=== PATIENT | male | born 1970 ===

== ENCOUNTER 2020-03-11 07:53 | Outpatient (REF) | payer MEDICARE, MEDICAID, SELFPAY | END 2020-03-11 07:54 | disposition home or self-care (01) | LOC: HO.LAB 07:53 | PROVIDERS: PCP Internal Medicine; Visit Provider Internal Medicine | DX: Z20.828 Contact with and (suspected) exposure to other viral communicable diseases (principal) | CPT/HCPCS: C9803; U0003 ==

== ENCOUNTER 2022-03-04 09:13 | Outpatient (REF) | payer MEDICARE, MEDICAID, SELFPAY ==
--- NOTE | ~2022-03-04 | XR_ITS ---
EXAMINATION: RIGHT HAND, LUMBAR SPINE AND LEFT FOOT. CLINICAL INFORMATION: Pain. COMPARISON: Right hand 03/24/2017. Left foot 11/10/2013 TECHNIQUE: Right hand 3 views, lumbar spine 3 views and left foot 3 views. FINDINGS: Right ankle: There old healed the right distal fourth and fifth metacarpal fractures. No visible acute fracture or dislocation seen. No lytic process. The soft tissues are normal. Lumbar spine: There is mild straightening of lumbar lordosis. The vertebral heights and alignment is normal. There is loss of L4-L5 and L5/S1 disc heights with moderate spondylosis. No visible acute fracture, dislocation or lytic process seen. SI joints are symmetrical. Left foot: There is mild hallux valgus deformity first MTP joint with minimal joint effusion but no periarticular spurring. No visible acute fracture, dislocation or lytic process seen. XR/XR foot LT min 3V IMPRESSION: 1. No acute fracture or dislocation right ankle. Old healed distal fourth and fifth metacarpal fractures. 2. Mild degenerative disc changes L4-L5 and L5-S1 disc levels with moderate spondylosis. No visible acute fracture or dislocation seen. 3. Mild hallux valgus deformity first MTP joint left foot. No visible acute fracture or dislocation seen.
--- NOTE | ~2022-03-04 | XR_ITS ---
EXAMINATION: RIGHT HAND, LUMBAR SPINE AND LEFT FOOT. CLINICAL INFORMATION: Pain. COMPARISON: Right hand 03/24/2017. Left foot 11/10/2013 TECHNIQUE: Right hand 3 views, lumbar spine 3 views and left foot 3 views. FINDINGS: Right ankle: There old healed the right distal fourth and fifth metacarpal fractures. No visible acute fracture or dislocation seen. No lytic process. The soft tissues are normal. Lumbar spine: There is mild straightening of lumbar lordosis. The vertebral heights and alignment is normal. There is loss of L4-L5 and L5/S1 disc heights with moderate spondylosis. No visible acute fracture, dislocation or lytic process seen. SI joints are symmetrical. Left foot: There is mild hallux valgus deformity first MTP joint with minimal joint effusion but no periarticular spurring. No visible acute fracture, dislocation or lytic process seen. XR/XR lumbar spine 2-3V IMPRESSION: 1. No acute fracture or dislocation right ankle. Old healed distal fourth and fifth metacarpal fractures. 2. Mild degenerative disc changes L4-L5 and L5-S1 disc levels with moderate spondylosis. No visible acute fracture or dislocation seen. 3. Mild hallux valgus deformity first MTP joint left foot. No visible acute fracture or dislocation seen.
--- NOTE | ~2022-03-04 | XR_ITS ---
EXAMINATION: RIGHT HAND, LUMBAR SPINE AND LEFT FOOT. CLINICAL INFORMATION: Pain. COMPARISON: Right hand 03/24/2017. Left foot 11/10/2013 TECHNIQUE: Right hand 3 views, lumbar spine 3 views and left foot 3 views. FINDINGS: Right ankle: There old healed the right distal fourth and fifth metacarpal fractures. No visible acute fracture or dislocation seen. No lytic process. The soft tissues are normal. Lumbar spine: There is mild straightening of lumbar lordosis. The vertebral heights and alignment is normal. There is loss of L4-L5 and L5/S1 disc heights with moderate spondylosis. No visible acute fracture, dislocation or lytic process seen. SI joints are symmetrical. Left foot: There is mild hallux valgus deformity first MTP joint with minimal joint effusion but no periarticular spurring. No visible acute fracture, dislocation or lytic process seen. XR/XR hand RT min 3V IMPRESSION: 1. No acute fracture or dislocation right ankle. Old healed distal fourth and fifth metacarpal fractures. 2. Mild degenerative disc changes L4-L5 and L5-S1 disc levels with moderate spondylosis. No visible acute fracture or dislocation seen. 3. Mild hallux valgus deformity first MTP joint left foot. No visible acute fracture or dislocation seen.
== END 2022-03-04 09:14 | disposition home or self-care (01) ==
LOC: HO.XRAY 09:13
PROVIDERS: PCP Internal Medicine; Visit Provider Internal Medicine
DX: M79.641 Pain in right hand (principal); M21.612 Bunion of left foot; M54.89 Other dorsalgia
CPT/HCPCS: 72100; 73130; 73630

== ENCOUNTER 2022-04-23 12:08 | Emergency (ER) | payer MEDICARE, MEDICAID, SELFPAY ==
--- NOTE | ~2022-04-23 | US_ITS ---
EXAMINATION: US ABDOMEN LIMITED CLINICAL INFORMATION: Right upper quadrant pain. COMPARISON: CT 12/21/2012 TECHNIQUE: Real-time imaging of the right upper quadrant abdominal viscera. FINDINGS: PANCREAS: Normal. LIVER: Normal. The liver is normal in size. The liver contour is normal. Parenchymal echogenicity is normal. No focal hepatic lesion. There is no intrahepatic biliary duct dilatation seen. GALLBLADDER: Normal. The gallbladder is physiologically distended without evidence of stones, sludge, polyps, wall thickening or pericholecystic fluid. COMMON BILE DUCT: Normal in caliber measuring 0.2 cm in diameter. RIGHT KIDNEY: Normal. No hydronephrosis. No renal calculi or focal parenchymal lesions. The kidney measures 12.3 cm in maximum dimension. FREE FLUID: None. US/US abdomen limited IMPRESSION: Normal right upper quadrant ultrasound.
[2022-04-23 12:32] VITALS: BP 149/83; PULSE 57; RESP 16; TEMP 37.3; O2SAT 99; BMI 31.1
--- NOTE | 2022-04-23 12:32 | ED.ABDPAIN ---
HPI - Abdominal Pain General Chief Complaint: Abdominal Pain <KATHERINE Blair - Last Filed: 04/23/22 12:35> Stated Complaint: swollen abd <KATHERINE Blair - Last Filed: 04/23/22 12:35> Time Seen by Provider: 04/23/22 13:41 <KATHERINE Blair - Last Filed: 04/23/22 12:35> Source: patient <Julita DO Johnny - Last Filed: 04/23/22 16:50> Mode of arrival: ambulatory <Julita Turner DO - Last Filed: 04/23/22 16:50> Limitations: no limitations <Julita Turner DO - Last Filed: 04/23/22 16:50> History of Present Illness HPI narrative: 2 to 3 weeks of RUQ pain made worse with moving and turning to right no associated symptoms or n/v/d or constipation. he denies fevers. does not take NSAIDs. Has never had this before. does not drink ETOH regularly <Julita Turner DO - Last Filed: 04/23/22 16:50> MD elicited complaint: abdominal pain <Julita Turner DO - Last Filed: 04/23/22 16:50> Pertinent past history: none <Julita Turner DO - Last Filed: 04/23/22 16:50> Onset (ago): week(s) (2.5) <Julita Turner DO - Last Filed: 04/23/22 16:50> Pain Consistency: intermittent <Julita Turner DO - Last Filed: 04/23/22 16:50> Location: RUQ <Julita Turner DO - Last Filed: 04/23/22 16:50> Severity: moderate <Julita Turner DO - Last Filed: 04/23/22 16:50> Quality: aching and fullness <Julita Turner DO - Last Filed: 04/23/22 16:50> Radiation: none <Julita Turner DO - Last Filed: 04/23/22 16:50> Migration to: no migration <Julita Turner DO - Last Filed: 04/23/22 16:50> Exacerbating factors: movement <Julita Turner DO - Last Filed: 04/23/22 16:50> Relieving factors: nothing <Julita Turner DO - Last Filed: 04/23/22 16:50> Associated symptoms: denies other symptoms <Julita Turner DO - Last Filed: 04/23/22 16:50> Related Data Home Medications: Previous Rx's Medication Instructions Recorded cyclobenzaprine 10 mg tablet 10 mg PO TID PRN muscle spasm #14 04/23/22 tabs famotidine 20 mg tablet (Pepcid) 20 mg PO DAILY PRN abdominal 04/23/22 discomfort #30 tabs hydrocodone 5 mg-acetaminophen 325 1 tab PO Q6H PRN pain #10 tabs 04/23/22 mg tablet lidocaine 5 % topical patch 1 patch topical DAILY #30 ea 04/23/22 ondansetron 4 mg disintegrating 4 mg PO Q8H PRN nausea and 04/23/22 tablet vomiting #20 tabs <KATHERINE Blair Last Filed: 04/23/22 12:35> Allergies/Adverse Reactions: Allergies Allergy/AdvReac Type Severity Reaction Status Date / Time tramadol [TRAMADOL] Allergy Unknown RASH,ITCHIN Verified 04/23/22 12:35 G <KATHERINE Blair Last Filed: 04/23/22 12:35> Review of Systems Review of Systems Constitutional : No Weight loss, No Fever, No Chills ENT/Mouth : No sore throat, No Rhinorrhea Eyes: No Swelling, No Redness Cardiovascular : No Chest Pain, No SOB, NoEdema Respiratory : No Cough, No Sputum, No Wheezing Gastrointestinal : no Nausea, no Vomiting, no Diarrhea, positive abdominal Pain, No Hematochezia, No Melena Genitourinary : No Dysuria, No Urinary Frequency, No Hematuria, No Urgency Musculoskeletal : No joint pain, No Myalgias, No Joint Swelling Skin : No Skin Lesions, No rash Neuro : No Weakness, No Numbness, No Dizziness, No Headache Psych : No Anxiety/Panic, No Depression Heme/Lymph: No Bruising, No Lymphadenopathy Endocrine : No Polyuria, No Polydipsia All other systems reviewed and are negative. <DO Annetta Chu Last Filed: 04/23/22 16:50> [facility] Past Medical History Attestation statement: The following information was validated with the patient. <Julita Turner DO - Last Filed: 04/23/22 16:50> Medical History: Medical History No pertinent past medical history <KATHERINE Blair - Last Filed: 04/23/22 12:35> Social History Social History: Social History (Updated 04/23/22 @ 16:49 by Julita Turner DO) Alcohol intake: never Patient Tobacco Use Status: Never used Tobacco Advance Directives: Yes Advance Directives Information Provided: Yes Advance Directives on File: No <KATHERINE Blair - Last Filed: 04/23/22 12:35> Physical Exam ED Vital Signs: Vital Signs - 24 hr 04/23/22 12:32 Temperature 99.1 F Pulse Rate 57 Respiratory Rate 16 Blood Pressure 149/83 H Pulse Oximetry 99 Oxygen Delivery Method Room Air BMI result Body Mass Index 31.1 <KATHERINE Blair - Last Filed: 04/23/22 12:35> Vital Signs - 24 hr 04/23/22 12:32 Temperature 99.1 F Pulse Rate 57 Respiratory Rate 16 Blood Pressure 149/83 H Pulse Oximetry 99 Oxygen Delivery Method Room Air BMI result Body Mass Index 31.1 <Julita Turner DO - Last Filed: 04/23/22 16:50> Appearance: Alert. Oriented X3. No acute distress. Eyes: Pupils equal, round and reactive to light. ENT: Pharynx normal. Neck: Normal inspection. Neck supple. CVS: Normal heart rate and rhythm. Pulses normal. Respiratory: No respiratory distress. Breath sounds normal. Abdomen: Soft and moderate RUQ ttp no mass felt Skin: Skin warm and dry. Normal skin color. Normal skin turgor. Extremities: No lower extremity edema. No calf ttp Neuro: Oriented X 3. No motor deficit. No sensory deficit. <Julita Turner DO - Last Filed: 04/23/22 16:50> Course Course Course Narrative: RME - 51 yo male with history of kidney stone requiring stent on the left side in the past, no other medical history presents to the ER with a few days of RUQ pain that radiates to the back. Associated with chills, decreased PO intake. Feels like the area is swollen. RUQ U/S along with labs have been ordered. <KATHERINE Blair - Last Filed: 04/23/22 12:35> Medical Decision Making Medical Decision Making [facility] Narrative: 51 yo male with epigastric and RUQ pain - no NSAID use, no n/v/d no RLQ pain no fevers has been present x 2 weeks doubt appendicitis - at this time will obtain basic labs and US to evaluate liver and gallbladder. <Julita Turner DO - Last Filed: 04/23/22 16:50> Differential Diagnosis Differential Diagnoses: The differential diagnosis associated with the presentation includes <Julita Turner DO - Last Filed: 04/23/22 16:50> biliary colic, pancreatitis, gastritis, PUD <Julita Turner DO - Last Filed: 04/23/22 16:50> Lab Data [facility] Lab Attestation statement: I reviewed the patient's lab results. <Julita Turner DO - Last Filed: 04/23/22 16:50> mild bump in lipase <Julita Turner DO - Last Filed: 04/23/22 16:50> Result Diagrams: 04/23/22 13:45 04/23/22 13:45 <KATHERINE Blair - Last Filed: 04/23/22 12:35> Labs: Lab Results 04/23/22 04/23/22 04/23/22 Range/Units 13:45 13:45 13:47 WBC 4.4 L (4.8-10.8) X10*3/uL RBC 3.92 L (4.60-5.80) X10*6/uL Hgb 13.0 L (14.0-18.0) g/dl Hct 38.5 L (42.0-52.0) % MCV 98.2 H (80.0-98.0) fL MCH 33.2 H (27.0-33.0) pg MCHC 33.8 (31.0-36.0) g/dl RDW 11.1 (11.0-16.0) % Plt Count 173 (160-400) X10*3/uL MPV 10.3 (9.4-12.4) fL Immature Gran % (Auto) 0.0 (0.0-0.4) % Neut % (Auto) 54.2 (45-73) % Lymph % (Auto) 34.5 (20-40) % [place] % (Auto) 9.5 (2-11) % Eos % (Auto) 1.1 (0-4) % Baso % (Auto) 0.7 (0-2) % Lymph # (Auto) 1.5 (1.2-4.9) X10*3/uL [place] # (Auto) 0.4 (0.1-1.2) X10*3/uL Eos # (Auto) 0.1 (0.0-0.4) X10*3/uL Baso # (Auto) 0.0 (0.0-0.2) X10*3/uL Abs Immat Gran (auto) 0.00 (0.00-0.03) X10*3/uL Absolute Neuts (auto) 2.4 (2.0-8.3) x10*3/uL Absolute Nucleated RBC 0.000 (0.0-0.012) X10*3/uL Nucleated RBC % (auto) 0.0 (0.0-0.2) /100WBC Sodium 141 (135-145) mmol/L Potassium 4.0 (3.3-5.1) mmol/L Chloride 104 (96-108) mmol/L Carbon Dioxide 30 H (22-29) mmol/L Anion Gap 11 L (12-20) BUN 12 (9-16) mg/dL Creatinine 1.03 (0.5-1.4) mg/dL Estim Creat Clear Calc 99.8 Estimated GFR > 60 Random Glucose 92 (60-115) mg/dL Calcium 9.3 (8.4-10.2) mg/dL Magnesium 1.8 (1.6-2.6) mg/dL Total Bilirubin 1.1 H (0.0-1.0) mg/dL Direct Bilirubin 0.4 (0.0-0.5) mg/dL AST 25 (5-37) U/L ALT 19 (0-40) U/L Alkaline Phosphatase 44 (39-117) U/L Total Protein 7.0 (6.5-8.0) g/dL Albumin 4.1 (3.5-5.0) g/dL Lipase 167 H (8-78) U/L Urine Color Dark Yellow Urine Appearance Clear Urine pH 6.0 (5.0-9.0) Ur Specific [place] >= 1.030 H (1.005-1.025) Urine Protein Trace (Neg-Trace) mg/dL Urine Glucose (UA) Negative (Negative) mg/dL Urine Ketones Negative (Negative) mg/dL Urine Blood Moderate (2+) H (Negative) Urine Nitrite Negative (Negative) Ur Leukocyte Esterase Negative (Negative) Urine RBC 0-2 (0-2) /HPF Urine WBC 0-5 (0-5) /HPF Ur Squamous Epith Cells 0-2 (0-2) /HPF Calcium Oxalate Crystal Present Urine Bacteria None Seen (None Seen) Hyaline Casts 0-2 (0-2) /LPF <KATHERINE Blair - Last Filed: 04/23/22 12:35> Lab Results 04/23/22 04/23/22 04/23/22 Range/Units 13:45 13:45 13:47 WBC 4.4 L (4.8-10.8) X10*3/uL RBC 3.92 L (4.60-5.80) X10*6/uL Hgb 13.0 L (14.0-18.0) g/dl Hct 38.5 L (42.0-52.0) % MCV 98.2 H (80.0-98.0) fL MCH 33.2 H (27.0-33.0) pg MCHC 33.8 (31.0-36.0) g/dl RDW 11.1 (11.0-16.0) % Plt Count 173 (160-400) X10*3/uL MPV 10.3 (9.4-12.4) fL Immature Gran % (Auto) 0.0 (0.0-0.4) % Neut % (Auto) 54.2 (45-73) % Lymph % (Auto) 34.5 (20-40) % [place] % (Auto) 9.5 (2-11) % Eos % (Auto) 1.1 (0-4) % Baso % (Auto) 0.7 (0-2) % Lymph # (Auto) 1.5 (1.2-4.9) X10*3/uL [place] # (Auto) 0.4 (0.1-1.2) X10*3/uL Eos # (Auto) 0.1 (0.0-0.4) X10*3/uL Baso # (Auto) 0.0 (0.0-0.2) X10*3/uL Abs Immat Gran (auto) 0.00 (0.00-0.03) X10*3/uL Absolute Neuts (auto) 2.4 (2.0-8.3) x10*3/uL Absolute Nucleated RBC 0.000 (0.0-0.012) X10*3/uL Nucleated RBC % (auto) 0.0 (0.0-0.2) /100WBC Sodium 141 (135-145) mmol/L Potassium 4.0 (3.3-5.1) mmol/L Chloride 104 (96-108) mmol/L Carbon Dioxide 30 H (22-29) mmol/L Anion Gap 11 L (12-20) BUN 12 (9-16) mg/dL Creatinine 1.03 (0.5-1.4) mg/dL Estim Creat Clear Calc 99.8 Estimated GFR > 60 Random Glucose 92 (60-115) mg/dL Calcium 9.3 (8.4-10.2) mg/dL Magnesium 1.8 (1.6-2.6) mg/dL Total Bilirubin 1.1 H (0.0-1.0) mg/dL Direct Bilirubin 0.4 (0.0-0.5) mg/dL AST 25 (5-37) U/L ALT 19 (0-40) U/L Alkaline Phosphatase 44 (39-117) U/L Total Protein 7.0 (6.5-8.0) g/dL Albumin 4.1 (3.5-5.0) g/dL Lipase 167 H (8-78) U/L Urine Color Dark Yellow Urine Appearance Clear Urine pH 6.0 (5.0-9.0) Ur Specific [place] >= 1.030 H (1.005-1.025) Urine Protein Trace (Neg-Trace) mg/dL Urine Glucose (UA) Negative (Negative) mg/dL Urine Ketones Negative (Negative) mg/dL Urine Blood Moderate (2+) H (Negative) Urine Nitrite Negative (Negative) Ur Leukocyte Esterase Negative (Negative) Urine RBC 0-2 (0-2) /HPF Urine WBC 0-5 (0-5) /HPF Ur Squamous Epith Cells 0-2 (0-2) /HPF Calcium Oxalate Crystal Present Urine Bacteria None Seen (None Seen) Hyaline Casts 0-2 (0-2) /LPF <Julita Turner DO - Last Filed: 04/23/22 16:50> Independent Interpretation I performed an independent interpretation of an: Ultrasound (no gallstones, pancreas normal ) <Julita Turner DO - Last Filed: 04/23/22 16:50> Prescription Management I considered prescription management with: Pain Medication (will DC home with pain medications, pepcid and refer to PCP/GI) <Julita Turner DO - Last Filed: 04/23/22 16:50> Discharge Plan Discharge Clinical Impression: Pancreatitis Qualifiers: Chronicity: acute Pancreatitis type: unspecified pancreatitis type Acute pancreatitis complication: no infection or necrosis Qualified Code(s): K85.90 - Acute pancreatitis without necrosis or infection, unspecified Abdominal pain Qualifiers: Abdominal location: right upper quadrant Qualified Code(s): R10.11 - Right upper quadrant pain <KATHERINE Blair - Last Filed: 04/23/22 12:35> Patient Disposition: Home, Self-Care <KATHERINE Blair - Last Filed: 04/23/22 12:35> Instructions: Pancreatitis (ED), Abdominal Pain (ED) <KATHERINE Blair - Last Filed: 04/23/22 12:35> Additional Instructions: return to ED for any worsening symptoms or concerns mild bump in lipase (pancreas lab but your ultrasound of pancreas, liver, gallbladder was normal) avoid motrin, aleve, ibuprofen, NSAIDs follow up with your doctor this week and follow up with [facility] if this persists over the next week eat bland foods <KATHERINE Blair - Last Filed: 04/23/22 12:35> Prescriptions: New famotidine [Pepcid] 20 mg tablet 20 mg PO DAILY PRN (Reason: abdominal discomfort) Qty: 30 0RF lidocaine 5 % adhesive patch,medicated 1 patch topical DAILY Qty: 30 0RF Rx Instructions: leave on most painful area for up to 12 hrs cyclobenzaprine 10 mg tablet 10 mg PO TID PRN (Reason: muscle spasm) Qty: 14 0RF hydrocodone-acetaminophen 5-325 mg tablet 1 tab PO Q6H PRN (Reason: pain) Qty: 10 0RF Rx Instructions: partial fill okay; Partial Fill upon patient request. ondansetron 4 mg tablet,disintegrating 4 mg PO Q8H PRN (Reason: nausea and vomiting) Qty: 20 0RF <KATHERINE Blair - Last Filed: 04/23/22 12:35> Stand Alone Forms: Work/School Release <KATHERINE Blair - Last Filed: 04/23/22 12:35> Interventions: ED Discharge Assessment Last Done: 04/23/22 15:57 <KATHERINE Blair - Last Filed: 04/23/22 12:35> Discharge Date/Time: 04/23/22 15:57 <KATHERINE Blair - Last Filed: 04/23/22 12:35>
[2022-04-23 14:14] LABS: MANUAL DIFF FLAG NO
[2022-04-23 14:20] LABS: Appearance Urine Clear; Color Urine Dark Yellow; Glucose Urine UA Negative (Negative); Leukocyte Esterase Urine Negative (Negative); Nitrite Urine Negative (Negative); Specific Gravity - Urine >= 1.030 (1.005-1.025); UMIC TRIGGER UACC YES; Urine Blood Moderate (2+) (Negative); Urine Ketones Negative (Negative); Urine Protein Trace mg/dL (Neg-Trace)
[2022-04-23 14:21] LABS: Basophils Percent Auto 0.7 % (0-2); Eosinophils Absolute Auto 0.1 X10*3/uL (0.0-0.4); Eosinophils Percent Auto 1.1 % (0-4); Hematocrit 38.5 % (42.0-52.0); Lymphocytes Absolute Auto 1.5 X10*3/uL (1.2-4.9); Lymphocytes Percent Auto 34.5 % (20-40); Mean Corpuscular HGB Conc 33.8 g/dl (31.0-36.0); Mean Corpuscular Hemoglobin 33.2 pg (27.0-33.0); Mean Corpuscular Volume 98.2 fL (80.0-98.0); Mean Platelet Volume 10.3 fL (9.4-12.4); Monocytes Absolute Auto 0.4 X10*3/uL (0.1-1.2); Monocytes Percent Auto 9.5 % (2-11); Neutrophils Absolute Auto 2.4 x10*3/uL (2.0-8.3); Neutrophils Percent Auto 54.2 % (45-73); Platelet Count 173 X10*3/uL (160-400); Red Blood Count 3.92 X10*6/uL (4.60-5.80); Red Cell Distribution Width 11.1 % (11.0-16.0); White Blood Count 4.4 X10*3/uL (4.8-10.8)
[2022-04-23 14:35] LABS: Alanine Aminotransferase 19 U/L (0-40); Albumin Level 4.1 g/dL (3.5-5.0); Alkaline Phosphatase 44 U/L (39-117); Anion Gap 11 (12-20); Aspartate Amino Transferase 25 U/L (5-37); Bilirubin Direct 0.4 mg/dL (0.0-0.5); Bilirubin Total 1.1 mg/dL (0.0-1.0); Blood Urea Nitrogen 12 mg/dL (9-16); Calcium 9.3 mg/dL (8.4-10.2); Carbon Dioxide 30 mmol/L (22-29); Chloride 104 mmol/L (96-108); Creatinine Clr Calc Pharmacy 99.8; Estimated Glomerular Filt Rate > 60; Glucose Random 92 mg/dL (60-115); Lipase 167 U/L (8-78); Magnesium 1.8 mg/dL (1.6-2.6); Sodium 141 mmol/L (135-145)
[2022-04-23 14:45] LABS: Bacteria Urine None Seen (None Seen); Calcium Oxalate Crystals Urine Present; Hyaline Casts Urine 0-2 /LPF (0-2); RBC Urine 0-2 /HPF (0-2); Squamous Epithelial Cell Urine 0-2 /HPF (0-2); WBC Urine 0-5 /HPF (0-5)
== END 2022-04-23 15:57 | disposition home or self-care (01) ==
PROVIDERS: Physician Assistant; Emergency Provider Emergency Medicine; PCP Internal Medicine
DX: K85.90 Acute pancreatitis without necrosis or infection, unspecified (principal); R10.11 Right upper quadrant pain; Z79.899 Other long term (current) drug therapy
CPT/HCPCS: 36415; 76705; 80048; 80076; 81001; 83690; 83735; 85025; 99284

== ENCOUNTER 2022-10-16 09:37 | Outpatient (REF) | payer MEDICARE, MEDICAID, SELFPAY ==
[2022-10-16 15:27] LABS: Creatinine Urine 439.65 mg/dL; Microalbum/Creatinine Ratio Ur 4.7 ug/mg cr
[2022-10-16 15:34] LABS: Cholesterol 177 mg/dL; HDL Cholesterol 55 mg/dL; LDL Cholesterol Calculated 115 mg/dl; Triglycerides 39 mg/dL
== END 2022-10-16 09:38 | disposition home or self-care (01) ==
LOC: HO.CHCLDS 09:37
PROVIDERS: Visit Provider Internal Medicine
DX: E11.9 Type 2 diabetes mellitus without complications (principal)
CPT/HCPCS: 36415; 80061; 82043

== ENCOUNTER 2023-01-08 08:00 | Outpatient (REF) | payer MEDICARE, MEDICAID, SELFPAY ==
[2023-01-08 09:57] LABS: Alanine Aminotransferase 13 U/L (0-40); Albumin Level 4.1 g/dL (3.5-5.0); Alkaline Phosphatase 41 U/L (39-117); Anion Gap 11 (12-20); Aspartate Amino Transferase 22 U/L (5-37); Bilirubin Total 0.9 mg/dL (0.0-1.0); Blood Urea Nitrogen 13 mg/dL (9-16); Calcium 9.4 mg/dL (8.4-10.2); Carbon Dioxide 27 mmol/L (22-29); Chloride 109 mmol/L (96-108); Estimated Glomerular Filt Rate > 60; Glucose Random 93 mg/dL (60-115); Lipase 68 U/L (8-78); Potassium 4.1 mmol/L (3.3-5.1); Sodium 143 mmol/L (135-145); Total Protein 7.1 g/dL (6.5-8.0)
== END 2023-01-08 08:01 | disposition home or self-care (01) ==
LOC: HO.LAB 08:00
PROVIDERS: PCP Internal Medicine; Visit Provider Nurse Practitioner
DX: Z01.818 Encounter for other preprocedural examination (principal); R74.8 Abnormal levels of other serum enzymes
CPT/HCPCS: 36415; 80053; 83690; 85025; 99202

== ENCOUNTER 2023-05-07 09:21 | Outpatient (REF) | payer MEDICARE, MEDICAID, SELFPAY ==
--- NOTE | ~2023-05-07 | CT_ITS ---
EXAMINATION: CT head/brain wo IV con CLINICAL INFORMATION: Reason for Exam New left sided headache in a 52 year old man. COMPARISON: CT head 07/10/2011 TECHNIQUE: Contiguous axial imaging was performed from the skull base to vertex without intravenous contrast. Sagittal and coronal reformatted images were obtained. This CT examination was performed using dose optimization techniques as appropriate, variously including the following: * Automated exposure control * Adjustment of mA and/or kV according to patient size (this includes techniques or standardized protocols for targeted exams where dose is matched to indication/reason for exam; i.e. extremities or head) Use of iterative reconstruction technique DLP: 972 mGy-cm FINDINGS: The ventricles and sulci are normal in size and configuration without significant volume loss or hydrocephalus. There is no abnormal attenuation within the brain parenchyma. No territorial loss of sparks-white differentiation. No acute intracranial hemorrhage or extra-axial fluid collection. No mass lesion, significant mass effect, or herniation pattern. Trace calcific plaque along the carotid siphons. The orbits are grossly normal. Improved aeration of the ethmoid air cells with decreased trace mucosal thickening and a couple small bilateral retention cysts. Partially imaged retention cysts in the left greater than right maxillary sinuses and along the floor of the sphenoid sinus. No mastoid effusion. Osseous structures are intact. CT/CT head/brain wo IV con IMPRESSION: Improved aeration of the ethmoid air cells with decreased trace mucosal thickening and a couple small bilateral retention cysts. Partially imaged retention cysts in the left greater than right maxillary sinuses and along the floor of the sphenoid sinus. Otherwise, unremarkable head CT.
== END 2023-05-07 09:22 | disposition home or self-care (01) ==
LOC: HO.CT 09:21
PROVIDERS: PCP Internal Medicine; Visit Provider Internal Medicine
DX: G44.209 Tension-type headache, unspecified, not intractable (principal)
CPT/HCPCS: 70450

== ENCOUNTER 2023-11-03 08:01 | Day surgery (SDC) | payer MEDICARE, MEDICAID, SELFPAY ==
[2023-05-27 14:16] VITALS: BMI 32.7
--- NOTE | 2023-10-31 09:44 | HO.ANESPROP2 ---
Documented by User: Terese Walsh NP 10/31/23 09:44 HPI - Anesthesia Eval Consult details Narrative: 53yo M for Colonoscopy Anesthesia Pre-Procedure Meds Is the patient on any of the following meds?: GLP1/DPP4 PMFSH Active Problems Active Problems: All Active Problems Pre-op examination (Acute) Elevated lipase (Acute) Nephrolithiasis (Acute) Diabetes (Acute) Hypertension (Acute) Obesity (Acute) Surgical History Surgical History (Updated 11/03/23 @ 11:09 by Kandace Kang MD) H/O tooth extraction Hx of hand surgery S/P cystoscopy with ureteral stent placement Social History Social History (Updated 11/03/23 @ 11:10 by Kandace Kang MD) Alcohol intake: never Patient Tobacco Use Status: Never used Tobacco Substance Use Type: Marijuana Meds Allergies Allergy/AdvReac Type Severity Reaction Status Date / Time tramadol [TRAMADOL] Allergy Unknown RASH,ITCHIN Verified 01/08/23 08:09 G Home Medications ?Medication ?Instructions ?Recorded ?Confirmed ?Last Taken ?Type dulaglutide 0.75 mg/0.5 mL mg subcut 01/08/23 10/23/23 [facility] Exam Height,Weight and Vital Signs: Height 5 ft 10 in Weight 103.419 kg Assessment and Plan Assessment Anesthesia Assessment: Chart Reviewed Documented by User: Kandace Kang MD 11/03/23 11:10 PMFSH Active Problems Active Problems: All Active Problems Pre-op examination (Acute) Elevated lipase (Acute) Nephrolithiasis (Acute) Diabetes (Acute) Hypertension (Acute) Obesity (Acute) Patient had ureteral stent placed for Kidney stones. Denies placement of renal artery stent Family History Family history of problems with anesthesia: No Surgical History Surgical History (Updated 11/03/23 @ 11:09 by Kandace Kang MD) H/O tooth extraction Hx of hand surgery S/P cystoscopy with ureteral stent placement History of Problems with Anesthesia: No Social History Social History (Updated 11/03/23 @ 11:10 by Kandace Kang MD) Alcohol intake: never Patient Tobacco Use Status: Never used Tobacco Substance Use Type: Marijuana Meds Allergies Allergy/AdvReac Type Severity Reaction Status Date / Time tramadol [TRAMADOL] Allergy Unknown RASH,ITCHIN Verified 01/08/23 08:09 G Home Medications ?Medication ?Instructions ?Recorded ?Confirmed ?Last Taken ?Type dulaglutide 0.75 mg/0.5 mL mg subcut 01/08/23 10/23/23 History subcutaneous pen injector (Trulicity) Exam Height,Weight and Vital Signs: Height 5 ft 10 in Weight 103.419 kg Vital Signs Temp Pulse Resp BP Pulse Ox O2 Del Method 11/03/23 08:23 98.2 F 68 16 106/66 97 Room Air Pertinent Lab Results Pertinent Lab Results: Lab Results 11/03/23 Range/Units 08:35 POC Glucose 94 (60-115) mg/dL Airway Mallampati Class: II TM Dist: >3cm Neck ROM: Full Denture: Upper Partial: Lower Loose/Missing/Broken Teeth: Yes (Denies broken or loose teeth. Dentures as above ) Heart: RRR Lungs: CTAB Assessment and Plan Assessment Anesthesia Assessment: Anesthesia Plan Discussed and Chart Reviewed Final Anesthetic Review Family History of Problems with Anesthesia: No History of Problems with Anesthesia: No NPO: Yes ASA Class: II Final Preanesthetic Review: No Changes in Pt Med Stat, Meds/Allgs Chart Reviewed, Consent Obtained/Reviewed and Anes Risks/Benef Reviewed Patient Risk: Intermediate Procedure Risk: Low Assessment/Block/Sedation in SS: Assess/Block/Sedation-SS Anesthetic Plan Anesthetic Plan: TIVA Disposition: Standard PACU
[2023-11-03 08:09] VITALS: BMI 30.6
[2023-11-03 08:23] VITALS: BP 106/66; PULSE 68; RESP 16; TEMP 36.8; O2SAT 97
[2023-11-03] MEDS: Lactated Ringers 1,000 ML 100 ML IVCONT (08:31)
[2023-11-03 08:38] LABS: Glucose, Whole Blood 94 mg/dL (60-115)
--- NOTE | 2023-11-03 09:02 | MHC.SHP ---
Pre-Procedural Eval Section A - 24 Hr Update-Section A only Date of Service: 11/03/23 Section B - Complete if H&P > 30 days Chief Complaint: colon cancer screening Relevant Family History (Specify if Yes): No Relevant Social History: None Present Medications: see Short Stay Collaborative assessment Medical History: Significant History (DM, hypertension, obesity) History of Previous Operations: Relevant previous surgery/procedure and date(s) (History of renal stent RIght hand surgery) Allergies: Allergies Allergy/AdvReac Type Severity Reaction Status Date / Time tramadol [TRAMADOL] Allergy Unknown RASH,ITCHIN Verified 01/08/23 08:09 G Review of Systems Sugical H&P ROS: Negative: Constitution, Cardiovascular, Respiratory and Gastrointestinal Exam Surgical H&P Exam: Normal: Heart, Normal: Lungs, Normal: Extremities and Normal: Abdomen Plan Diagnosis/Plan: Unchanged I have reviewed the history and physical and performed a pertinent physical examination on my patient. No changes have occurred unless specified. Time Spent With Patient Time: Total time managing care of this patient today ____ minutes.
--- NOTE | 2023-11-03 11:15 | P.OPN-COLO_ITS ---
Colonoscopy Operative Note Operative Note Date of Service: 11/03/23 Narrative: COLONOSCOPY TILL CECUM Pre-op diagnosis: Colon cancer screening (First colonoscopy). Post-op diagnosis:? Diverticulosis, hemorrhoids Endoscopist:? Christina Vizcaino MD Anesthesia:?MAC Consent: Indications for the procedure and potential complications of bleeding, perforation, reaction to medications and missed diagnosis were discussed with the patient and informed consent was obtained. Instrument: Olympus CF H 190 L variable stiffness adult colonoscope Monitoring: Vital signs and clinical assessment, intermittent blood pressure monitoring, continuous EKG monitoring, Pulse oximetry and Carbon Dioxide monitoring were done throughout the procedure. Please see anesthesia flowsheet. Colon withdrawl time was 14 minutes. Procedure: The patient was placed in the left lateral decubitis position and pre-procedure medications were administered. After a digital rectal examination of the ano-rectum, the video colonoscope was inserted into the rectum and advanced through the colon to the cecum. The colonoscope was slowly withdrawn in a retrograde panoramic fashion and the colon mucosa was carefully examined including a retroflexed view of the rectum. Findings and interventions are described below. Procedure Difficulty: without difficulty Findings: Terminal Ileum: Not evaluated Cecum: Normal Ascending Colon: Normal Transverse Colon: Normal Descending Colon: Normal Sigmoid Colon: Moderate diverticulosis Rectum: Normal Ano-rectum: Moderate internal hemorrhoids Colon preparation: Good after copious irrigation. [place] Bowel Preparation Scale Right colon; 2 Transverse colon: 2 Left colon; 2 (0 = Unprepared colon segment with mucosa not seen due to solid stool that cannot be cleared. 1 = Portion of mucosa of the colon segment seen, but other areas of the colon segment not well seen due to staining, residual stool and/or opaque liquid. 2 = Minor amount of residual staining, small fragments of stool and/or opaque liquid, but mucosa of colon segment seen well. 3 = Entire mucosa of colon segment seen well with no residual staining, small fragments of stool or opaque liquid) Impression and Post Procedure Diagnosis: Colonoscopy Findings: No polyps were detected Moderate diverticulosis seen in the sigmoid colon Moderate hemorrhoids on retroflexed exam. Plan: Pt has a FU appointment on 11/19/23 with Darlene Machado NP, Repeat Colonoscopy in 5 years since family hx from his Dad's side of the family is not known (and earlier if clinically indicated). Above findings were reviewed with the patient and relevant handouts were given and the discharge area.
[2023-11-03 11:22] VITALS: BP 80/54; PULSE 70; RESP 18; TEMP 36.3; O2SAT 98
[2023-11-03 11:37] VITALS: BP 107/65; PULSE 66; RESP 18; TEMP 36.4; O2SAT 98
== END 2023-11-03 12:17 | disposition home or self-care (01) ==
PROVIDERS: PCP Internal Medicine; Visit Provider Internal Medicine Gastroenterology
PROC: 0DJD8ZZ Inspection of Lower Intestinal Tract, Via Natural or Artificial Opening Endoscopic (ICD-10-PCS; CPT 45378; principal; 2023-11-03 09:20)
DX: Z12.11 Encounter for screening for malignant neoplasm of colon (principal); K57.30 Diverticulosis of large intestine without perforation or abscess without bleeding; K64.8 Other hemorrhoids; K85.90 Acute pancreatitis without necrosis or infection, unspecified; R74.8 Abnormal levels of other serum enzymes; I10 Essential (primary) hypertension; E11.9 Type 2 diabetes mellitus without complications; E66.9 Obesity, unspecified; N20.0 Calculus of kidney; Z96.0 Presence of urogenital implants; Z79.85 Long-term (current) use of injectable non-insulin antidiabetic drugs; Z88.5 Allergy status to narcotic agent
CPT/HCPCS: G0121; 82947; J1596; J2250; J2704

== ENCOUNTER → 2023-11-03 08:01 | Outpatient (BNV) | payer MEDICARE, MEDICAID, SELFPAY | PROVIDERS: PCP Internal Medicine; Visit Provider Internal Medicine Gastroenterology | DX: Z12.11 Encounter for screening for malignant neoplasm of colon (principal); K57.30 Diverticulosis of large intestine without perforation or abscess without bleeding; K64.0 First degree hemorrhoids | CPT/HCPCS: G0121 ==

== ENCOUNTER 2023-11-19 09:26 | Outpatient (AMB) | payer MEDICARE, MEDICAID, SELFPAY ==
[2023-11-19 09:29] VITALS: BP 85/50; PULSE 69; BMI 30.4
--- NOTE | 2023-11-19 09:29 | MHC.OFFVIS ---
Vital Signs 11/19/23 09:29 Height 5 ft 10 in Weight 211 lb 13.828 oz BMI 30.4 BP 85/50 L Blood Pressure Location Lt brachial Position Sitting Pulse 69 Intake Visit Reasons: s/p colon Intake Note: Titi presents to in office visit today in follow up s/p colonoscopy. CC: Patient reports that he is doing well and denies having any GI concerns. 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 He was seen in the ER for right upper quadrant pain but that is not return in since he is decided that it may have been pulled muscle since it responded well to lidocaine cream. He has lost a lot of weight via intentional dieting he used to be 380 lbs; LOSING 150 LB over 2 years. He denies any bowel problems, he suffers nausea occasionally but transient and not interfering with appetite (may be from Trulicity). There no prior problems with anesthesia or sedation. He denies any cardiac or respiratory problems. No ID problems. There is no known FHX of crc or polyps. (2) Elevated lipase: Code(s): R74.8 - Abnormal levels of other serum enzymes Orders: Orders Comprehensive Met. Panel Today R74.8 - Abnormal levels of other serum enzymes, Z01.818 - Encounter for other preprocedural examination Complete Blood Count Auto Diff Today R74.8 - Abnormal levels of other serum enzymes, Z01.818 - Encounter for other preprocedural examination Lipase Today R74.8 - Abnormal levels of other serum enzymes, Z01.818 - Encounter for other preprocedural examination Colonoscopy - GI Use Only Today R74.8 - Abnormal levels of other serum enzymes, Z01.818 - Encounter for other preprocedural examination Medications: New peg 3350-electrolytes 236-22.74-6.74 -5.86 gram (Golytely) until fecal effluent is clear; do not exceed a total volume of 2,000 mL 240 mL PO Q10M 1 day 4,000 mL 0RF Z12.11 - Encounter for screening for malignant neoplasm of colon LABS: not obtained COLONOSCOPY 11/03/23 Findings: Terminal Ileum: Not evaluated Cecum: Normal Ascending Colon: Normal Transverse Colon: Normal Descending Colon: Normal Sigmoid Colon: Moderate diverticulosis Rectum: Normal Ano-rectum: Moderate internal hemorrhoids Impression and Post Procedure Diagnosis: Colonoscopy Findings: No polyps were detected Moderate diverticulosis seen in the sigmoid colon Moderate hemorrhoids on retroflexed exam. Plan: Pt has a FU appointment on 11/19/23 with Darlene Machado NP, Repeat Colonoscopy in 5 years since family hx from his Dad's side of the family is not known (and earlier if clinically indicated). BIOPSY TODAY'S VISIT He is agreeable to a 5 year follow up. The procedure was well tolerated. The results were explained and the patient is agreeable to the follow-up interval as stated. The bowel pattern has returned to normal. Education was provided to tell any 1st degree relatives about their findings to be sure that they are screened by age 45. Educated that they will be put on a recall list when it is time for their repeat scope but should they move out of state or away from the hospital they will need to remember along with their primary to repeat the procedure in a timely fashion to avoid any adverse complications. [facility] Surgical History (Updated 11/03/23 @ 11:09 by Kandace Kang MD) H/O tooth extraction Hx of hand surgery S/P cystoscopy with ureteral stent placement Social History (Updated 11/03/23 @ 11:10 by Kandace Kang MD) Alcohol intake: never Patient Tobacco Use Status: Never used Tobacco Substance Use Type: Marijuana Review of Systems Const Denies fatigue, Denies fever(s), Denies night sweats, Denies poor appetite and Denies weight loss ENT Reports Normal hearing present, Denies dental pain, Denies dysphagia, Denies hearing loss, Denies mouth pain, Denies odynophagia, Denies throat swelling, Denies tongue swelling and Reports other (Dentition adequate) Card Reports no additional complaints Resp Reports no additional complaints GI Details: Denies abdominal pain, Denies melena, Denies bloating, Denies hematochezia, Denies constipation, Denies GI cramping, Denies dysphagia, Denies excessive flatus, Denies early satiety, Denies heartburn, Denies diarrhea, Denies nausea, Denies odynophagia, Denies vomiting and Denies hematemesis Skin/Breast Denies pruritus, Denies lesions, Denies rash and Denies jaundice Neuro Reports Normal hearing present and Denies Abnormal speech present Endo Denies fatigue Aller/Immun Denies throat swelling and Denies tongue swelling Physical Exam Vital Signs: Last Vital Signs Pulse 69 11/19/23 09:29 BP 85/50 L 11/19/23 09:29 BMI result Body Mass Index 30.4 Const General: cooperative, no acute distress, well developed and well groomed Nutritional Appearance: well nourished and obese Orientation/consciousness: oriented to person, oriented to place and oriented to time Limitations: No language barrier HEENT Head: Yes normocephalic and Yes atraumatic Eyes General: appearance normal, both eyes and all related structures Pupils: Equal, round and reactive pupils present Neck Neck: Yes normal visual inspection and Yes no lymphadenopathy Thyroid: Thyroid normal Resp Effort & Inspection: normal respiratory effort and able to speak in complete sentences Auscultation: clear to auscultation bilaterally Cardio Rate: regular rate Rhythm: regular rhythm Heart sounds: Normal, physiologic split S2 sound present Peripheral pulses: radial pulses present and posterior tibial pulses present GI Inspection: No distended and No Abdominal panniculus present Palpation (GI): Soft to palpation, nontender, no guarding, not rigid and No hepatosplenomegaly present Percussion: Yes normal to percussion Auscultation: normal bowel sounds Rectal Exam - Male: Yes deferred Skin General skin exam: no rashes or lesions noted, turgor normal, skin not dry, no jaundice, No spider nevi and no striae Rashes: no rashes Nails: normal Neuro General: oriented to person, oriented to place and oriented to time Cranial nerves: Yes Equal, round and reactive pupils present and Yes Normal hearing present Speech: No Abnormal speech present Extrem General: Yes normal to inspection, No clubbing, No cyanosis and No edema Psych Appearance: grossly normal and well kempt Mental Status: mental status grossly normal Speech and movement: Normal speech and movement present Affect: normal affect Attitude: cooperative Thought process: Normal thought process present and not confabulating Thought content: Normal thought content present Insight: Fair insight present (Psych) Judgement: Fair judgement present (Psych) Assessment & Plan Assessment & Plan (1) Family history of colon cancer: Code(s): Z80.0 - Family history of malignant neoplasm of digestive organs Category: Medical Plan He is agreeable to a 5 year follow up. The procedure was well tolerated. The results were explained and the patient is agreeable to the follow-up interval as stated. The bowel pattern has returned to normal. Education was provided to tell any 1st degree relatives about their findings to be sure that they are screened by age 45. Educated that they will be put on a recall list when it is time for their repeat scope but should they move out of state or away from the hospital they will need to remember along with their primary to repeat the procedure in a timely fashion to avoid any adverse complications. Coding Level of Care Code Est Pt Level 3 (46843) Diagnoses Family history of colon cancer Z80.0
== END 2023-11-19 09:45 | disposition home or self-care (01) ==
PROVIDERS: PCP Internal Medicine; Visit Provider Nurse Practitioner
DX: Z80.0 Family history of malignant neoplasm of digestive organs (principal)
CPT/HCPCS: 99213

== ENCOUNTER → 2023-11-19 09:26 | Outpatient (BNVA) | payer MEDICARE, MEDICAID, SELFPAY | PROVIDERS: PCP Internal Medicine; Visit Provider Nurse Practitioner | DX: Z09 Encounter for follow-up examination after completed treatment for conditions other than malignant neoplasm (principal); R74.8 Abnormal levels of other serum enzymes; Z80.0 Family history of malignant neoplasm of digestive organs | CPT/HCPCS: 99212 ==